=== PATIENT | male | born 2000 | race African-American/Black ===

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

== ENCOUNTER 2020-02-04 12:20 | Emergency (ER) | payer OTHER, SELFPAY ==
[2020-02-04 12:40] LABS: Bilirubin Negative (Negative); Blood, Urine Negative (Negative); Clarity Cloudy (Clear); Glucose, Urine (Dipstick) Negative (Negative); Ketone, Urine Negative (Negative); Leukocyte Small (Negative); Nitrite Negative (Negative); Protein, Urine (Dipstick) 30 mg/dL (Neg-Trace); pH, Urine Greater/Equal 9.0 (5.0-9.0)
[2020-02-04 12:41] LABS: Bacteria/HPF 2+ HPF (None Seen); RBC/HPF 0-3 HPF (0-3); Squamous Epithelial 0-3 HPF (0-3); WBC/HPF 21-50 HPF (0-3)
[2020-02-04] MEDS ORDERED: Azithromycin 250 MG TAB ONE (12:50)
[2020-02-04] MEDS ORDERED: Lidocaine 2% PF 5 ML VIAL ONE (12:50)
[2020-02-04] MEDS ORDERED: cefTRIAXone\\ROCEPHIN 500 MG VIAL ONE (12:50)
[2020-02-05 20:05] LABS: Chlam.trachomatis by PCR,Urine Not Detected (NotDetected)
== END 2020-02-04 13:00 | disposition home or self-care (01) ==
LOC: BURERS 12:20
DX: N34.2 Other urethritis (principal)
CPT/HCPCS: 81003; 81015; 87086; 87491; 87591; 96372; 99283; J0696; J2001

== ENCOUNTER 2020-06-20 22:45 | Emergency (ER) | payer SELFPAY | END 2020-06-20 23:50 | disposition left against medical advice (07) | LOC: BURERS 22:45 | DX: R07.0 Pain in throat (principal) | CPT/HCPCS: 99282 ==

== ENCOUNTER 2021-03-31 | Emergency (ER) | payer SELFPAY | END 2021-03-31 13:53 | disposition home or self-care (01) | DX: A59.03 Trichomonal cystitis and urethritis (principal) ==

== ENCOUNTER 2021-06-06 09:54 | Emergency (ER) | payer SELFPAY | END 2021-06-06 10:29 | disposition home or self-care (01) | LOC: BURERS 09:54 | DX: A60.01 Herpesviral infection of penis (principal) | CPT/HCPCS: 99283 ==